=== PATIENT | female | born 1960 | race Caucasian/White ===

== ENCOUNTER → 2016-06-17 | Day surgery (SDC) | payer OTHER ==
[~2016-06-17] VITALS: Ht 160 cm; Wt 71.2 kg
[~2016-06-17] MED LIST: FORFIVO XL450 MG; LORAZEPAM2 M1 PO; MOBIC15 M1 PO
--- NOTE | 2016-06-17 13:52 | Operative Report ---
Operative/Inv Procedure Report Surgery Date: 06/17/16 Name of Procedure: 1. exam under anesthesia 2. percutaneous coccygeal injection Pre-Operative Diagnosis: coccygodynia Post-Operative Diagnosis: same Estimated Blood Loss: none Surgeon/Tax Examiner: GUSTABO FREGOSO MD Anesthesia: local monitored anesthesi Specimens: None Complications: None Condition: Stable to recovery room Operative Indication: Patient is a 55-year-old woman with a new onset of coccygeal pain for approximately for 5 weeks. Radiologic imaging was negative for acute pathological processes. There was no evidence of a perirectal abscess or anal fistula on the office exam. Patient presents today for exam under anesthesia and percutaneous coccygeal injection. All risks benefits and alternatives have been explained to patient in detail, and she expressed understanding and agreement with the same. Operative/Procedure Note Note: Patient was taken to the operating room and placed in the prone position on the operating table. Anesthesia was established by anesthesia team. The buttocks were taped apart. All appropriate pressure points were padded and the patient was secured to the operating table. The timeout was carried out. Exam under anesthesia was conducted. There was no evidence of fluctuance, drainage, or any mucosal or anatomic abnormalities correlating to patient's pain. Patient's low back and cleft were prepped and draped in the standard surgical fashion. A mix of 8 mL of half percent plain Marcaine and 2 mL of Kenalog (40 mg/1 ml) were injected percutaneously in the coccygeal periosteum. Patient tolerated the procedure well. The sponge and instrument counts were correct in the end the procedure. Patient was awakened up and taken to recovery room in stable condition. Findings: Normal Discharge Disposition: home
== END ==
LOC: STS 02:51
DX: M53.3 Sacrococcygeal disorders, not elsewhere classified (principal); K62.89 Other specified diseases of anus and rectum
CPT/HCPCS: J2250

== ENCOUNTER 2016-09-21 16:38 | Emergency (ER) | payer OTHER ==
[~2016-09-21] VITALS: Ht 160 cm; Wt 71.7 kg
[~2016-09-21 16:38] MED LIST changes: -MOBIC15 M1 PO
[2016-09-21 16:40] VITALS: BP 164/80
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
[2016-09-21] MEDS ORDERED: MOBIC15 M1 PO (18:31)
== END 2016-09-21 18:41 ==
LOC: ERH 16:38
DX: M25.50 Pain in unspecified joint (principal); V89.2XXA Person injured in unspecified motor-vehicle accident, traffic, initial encounter; Y92.9 Unspecified place or not applicable